=== PATIENT | male | born 1965 | race Caucasian/White ===

== ENCOUNTER 2019-01-20 00:24 | Emergency (ER) | payer OTHER, MEDICAID ==
[~2019-01-20] VITALS: Ht 182.9 cm; Wt 136.1 kg
[2019-01-20 03:47] VITALS: BP 143/87
== END 2019-01-20 04:44 | disposition home or self-care (01) ==
LOC: ER 00:27
DX: I10 Essential (primary) hypertension (principal); E11.42 Type 2 diabetes mellitus with diabetic polyneuropathy; E78.5 Hyperlipidemia, unspecified; F31.9 Bipolar disorder, unspecified; Z76.0 Encounter for issue of repeat prescription; Z95.0 Presence of cardiac pacemaker